=== PATIENT | male | born 2000 | race Caucasian/White ===

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

== ENCOUNTER 2022-05-19 08:06 | Day surgery (SDC) | payer OTHER ==
[~2022-05-19] VITALS: Ht 170.2 cm; Wt 77.1 kg
[2022-05-19] MEDS ORDERED: MIDAZOLAM 2 MG/2 ML VIAL ONE (09:21)
[2022-05-19] MEDS ORDERED: fentaNYL citrate 0.05 MG/ML VIAL ONE (09:21)
[2022-05-19] MEDS ORDERED: LIDOCAINE 2% 100 MG/5 ML UJET TP ONE (09:22)
[2022-05-19] MEDS ORDERED: fentaNYL citrate 0.05 MG/ML VIAL IVP ONE (12:35)
[2022-05-19] MEDS ORDERED: MIDAZOLAM 2 MG/2 ML VIAL IVP ONE (12:35)
== END 2022-05-19 11:35 | disposition home or self-care (01) ==
LOC: MOR 08:06 → MMU 08:07 → MOR 11:35
PROVIDERS: ATTEND Internal Medicine Gastroenterology
DX: K92.1 Melena (principal); K29.70 Gastritis, unspecified, without bleeding; K29.80 Duodenitis without bleeding; R19.4 Change in bowel habit; R11.2 Nausea with vomiting, unspecified; E78.00 Pure hypercholesterolemia, unspecified; K21.9 Gastro-esophageal reflux disease without esophagitis; F41.9 Anxiety disorder, unspecified; F32.A Depression, unspecified; Z79.899 Other long term (current) drug therapy; Z20.822 Contact with and (suspected) exposure to COVID-19
CPT/HCPCS: 36415; 86677; 88305; J2250; J3010